=== PATIENT | male | born 1945 | race Caucasian/White ===

== ENCOUNTER 2020-01-07 14:29 | Outpatient (CLI) | payer MEDICARE, BC | END 2020-01-07 23:59 | disposition home or self-care (01) | LOC: RAD 14:29 | PROVIDERS: ATTEND Psychiatry & Neurology Neurology | DX: R13.12 Dysphagia, oropharyngeal phase (principal); R47.1 Dysarthria and anarthria; R49.0 Dysphonia; G20 Parkinson's disease | CPT/HCPCS: 74230 ==

== ENCOUNTER 2020-03-15 10:08 | Emergency (ER) | payer MEDICARE, BC ==
[~2020-03-15] VITALS: Ht 170.2 cm; Wt 80.0 kg
[2020-03-15 11:15] LABS: BASOPHILS % (AUTO) 0.4 % (0-1); EOSINOPHILS # (AUTO) 0.3 X10'3 (0-0.9); EOSINOPHILS % (AUTO) 6.3 % (0-6); HEMATOCRIT 39.6 % (42.0-52.0); HEMOGLOBIN 13.5 g/dl (14.0-17.9); LYMPHOCYTES # (AUTO) 0.8 X10'3 (1.1-4.8); LYMPHOCYTES % (AUTO) 15.3 % (21-51); MEAN CORPUSCULAR HEMOGLOBIN 30.6 PG (27.0-31.0); MEAN CORPUSCULAR HGB CONC 34.1 g/dL (33.0-36.5); MEAN CORPUSCULAR VOLUME 89.6 FL (78-98); MEAN PLATELET VOLUME 9.1 FL (7.4-10.4); MONOCYTES # (AUTO) 0.4 X10'3 (0-0.9); MONOCYTES % (AUTO) 7.7 % (2-12); NEUTROPHILS # (AUTO) 3.6 X10'3 (1.8-7.7); NEUTROPHILS % (AUTO) 70.3 % (42-75); PLATELET COUNT 173 X10'3 (140-440); RED BLOOD COUNT 4.43 X10'6 (4.70-6.10); RED CELL DISTRIBUTION WIDTH 13.6 % (11.5-14.5); WHITE BLOOD COUNT 5.1 X10'3 (4.5-11.0)
--- NOTE | 2020-03-15 11:17 | NUR ---
AT BEDSIDE ,VITALS DOCUMENTED ,NO DISTRESS NOTED .PT DENIES NAY DIZZINES SOR CP AT THIS TIME.C/O HEADACHE 08/21.
[2020-03-15 11:31] LABS: ALANINE AMINOTRANSFERASE 8 U/L (12-78); ALBUMIN 3.6 G/DL (3.4-5.0); ALBUMIN/GLOBULIN RATIO 0.9 (1.1-1.5); ALKALINE PHOSPHATASE 90 IU/L (46-116); ANION GAP 5 (8-16); ASPARTATE AMINO TRANSFERASE 12 U/L (10-37); BILIRUBIN,TOTAL 0.4 MG/DL (0.1-1.0); BLOOD UREA NITROGEN 26 MG/DL (7-18); BUN/CREATININE RATIO 24.8 (5.4-32.0); CHLORIDE 102 MMOL/L (99-107); CREATININE 1.05 MG/DL (0.60-1.10); GLUCOSE 185 MG/DL (70-104); POTASSIUM 3.1 MMOL/L (3.5-5.1); SODIUM 141 MMOL/L (135-145); TOTAL CARBON DIOXIDE 33.9 MMOL/L (24-32); TOTAL PROTEIN 7.4 G/DL (6.4-8.2); eGFR 69 ML/MIN
[2020-03-15 11:56] VITALS: BP 112/57
== END 2020-03-15 11:57 | disposition home or self-care (01) ==
LOC: ER 10:09
DX: R00.0 Tachycardia, unspecified (principal); G20 Parkinson's disease; F03.90 Unspecified dementia, unspecified severity, without behavioral disturbance, psychotic disturbance, mood disturbance, and anxiety
CPT/HCPCS: 36415; 71045; 80053; 83880; 84484; 85025; 93005; 99285

== ENCOUNTER 2021-01-23 17:17 | Emergency (ER) | payer MEDICARE, BC ==
[~2021-01-23] VITALS: Ht 165.1 cm; Wt 85.9 kg
[2021-01-23 17:35] LABS: BASOPHILS % (AUTO) 0.4 % (0-1); EOSINOPHILS # (AUTO) 0.1 X10'3 (0-0.9); EOSINOPHILS % (AUTO) 1.2 % (0-6); HEMATOCRIT 47.1 % (42.0-52.0); HEMOGLOBIN 15.7 g/dl (14.0-17.9); LYMPHOCYTES # (AUTO) 1.5 X10'3 (1.1-4.8); LYMPHOCYTES % (AUTO) 15.8 % (21-51); MEAN CORPUSCULAR HEMOGLOBIN 30.6 PG (27.0-31.0); MEAN CORPUSCULAR HGB CONC 33.4 g/dL (33.0-36.5); MEAN CORPUSCULAR VOLUME 91.6 FL (78-98); MEAN PLATELET VOLUME 9.3 FL (7.4-10.4); MONOCYTES # (AUTO) 0.8 X10'3 (0-0.9); NEUTROPHILS # (AUTO) 6.8 X10'3 (1.8-7.7); NEUTROPHILS % (AUTO) 73.6 % (42-75); PLATELET COUNT 166 X10'3 (140-440); RED BLOOD COUNT 5.14 X10'6 (4.70-6.10); WHITE BLOOD COUNT 9.3 X10'3 (4.5-11.0)
[2021-01-23 17:46] LABS: PARTIAL THROMBOPLASTIN TIME 28 SECONDS (22-32)
[2021-01-23 17:47] LABS: ALANINE AMINOTRANSFERASE 7 U/L (12-78); ALBUMIN 3.8 G/DL (3.4-5.0); ALBUMIN/GLOBULIN RATIO 1.1 (1.1-1.5); ALKALINE PHOSPHATASE 103 IU/L (46-116); ANION GAP 8 (8-16); ASPARTATE AMINO TRANSFERASE 17 U/L (10-37); BILIRUBIN,TOTAL 0.8 MG/DL (0.1-1.0); BLOOD UREA NITROGEN 15 MG/DL (7-18); BUN/CREATININE RATIO 13.8 (5.4-32.0); CHLORIDE 101 MMOL/L (99-107); CREATININE 1.09 MG/DL (0.60-1.10); GLUCOSE 187 MG/DL (70-104); POTASSIUM 3.1 MMOL/L (3.5-5.1); SODIUM 140 MMOL/L (135-145); TOTAL CARBON DIOXIDE 30.7 MMOL/L (24-32); TOTAL PROTEIN 7.3 G/DL (6.4-8.2); eGFR 66 ML/MIN
[2021-01-23 17:51] LABS: TROPONIN I < 0.04 NG/ML (0.0-0.05)
[2021-01-23] MEDS ORDERED: ESCI-8 PO (18:20)
[2021-01-23] MEDS ORDERED: HYDR25TA4 PO (18:20)
[2021-01-23] MEDS ORDERED: CARB1TAB42 PO (18:20)
[2021-01-23] MEDS ORDERED: RIVA1.5C16 PO (18:20)
[2021-01-23] MEDS ORDERED: QUET25TA36 PO (18:20)
[2021-01-23] MEDS ORDERED: GABA300C PO (18:20)
[2021-01-23] MEDS ORDERED: CLOB25SO7 TOP (18:20)
[2021-01-23] MEDS ORDERED: CARB1TAB37 PO (18:20)
[2021-01-23] MEDS ORDERED: FERR-39 PO (19:12)
[2021-01-23] MEDS ORDERED: SOLI5TAB8 PO (19:12)
[2021-01-23] MEDS ORDERED: carbidoba-levodopa 25-100mg tablet PO ONE (19:13)
[2021-01-23 19:40] VITALS: BP 105/72
== END 2021-01-23 19:40 ==
LOC: ER 17:18
DX: R55 Syncope and collapse (principal); Z20.822 Contact with and (suspected) exposure to COVID-19; G20 Parkinson's disease; I62.9 Nontraumatic intracranial hemorrhage, unspecified; F02.80 Dementia in other diseases classified elsewhere, unspecified severity, without behavioral disturbance, psychotic disturbance, mood disturbance, and anxiety
CPT/HCPCS: 36415; 70450; 71045; 80053; 84484; 85025; 85610; 85730; 87635; 99285; C9803; 93005

== ENCOUNTER 2021-06-23 19:25 | Emergency (ER) | payer MEDICARE, BC ==
[~2021-06-23] VITALS: Ht 180.3 cm; Wt 84.1 kg
[~2021-06-23 19:25] MED LIST: CARB1TAB37 PO; CARB1TAB42 PO; ESCI-8 PO; FERR-39 PO; GABA300C PO; HYDR25TA4 PO; QUET25TA36 PO; RIVA1.5C30 PO; SOLI5TAB8 PO
[2021-06-23 19:37] VITALS: BP 166/72
[2021-06-23 20:12] LABS: BASOPHILS # (AUTO) 0.1 X10'3 (0-0.2); BASOPHILS % (AUTO) 1.3 % (0-1); EOSINOPHILS # (AUTO) 0.1 X10'3 (0-0.9); EOSINOPHILS % (AUTO) 2.3 % (0-6); HEMATOCRIT 44.4 % (42.0-52.0); HEMOGLOBIN 14.8 g/dl (14.0-17.9); LYMPHOCYTES # (AUTO) 0.7 X10'3 (1.1-4.8); LYMPHOCYTES % (AUTO) 11.9 % (21-51); MEAN CORPUSCULAR HEMOGLOBIN 29.6 PG (27.0-31.0); MEAN CORPUSCULAR HGB CONC 33.5 g/dL (33.0-36.5); MEAN CORPUSCULAR VOLUME 88.6 FL (78-98); MONOCYTES # (AUTO) 0.8 X10'3 (0-0.9); NEUTROPHILS # (AUTO) 4.4 X10'3 (1.8-7.7); NEUTROPHILS % (AUTO) 71.5 % (42-75); PLATELET COUNT 150 X10'3 (140-440); RED BLOOD COUNT 5.01 X10'6 (4.70-6.10); RED CELL DISTRIBUTION WIDTH 13.9 % (11.5-14.5); WHITE BLOOD COUNT 6.2 X10'3 (4.5-11.0)
[2021-06-23 20:20] LABS: ALANINE AMINOTRANSFERASE 8 U/L (12-78); ALBUMIN 3.6 G/DL (3.4-5.0); ALBUMIN/GLOBULIN RATIO 1.1 (1.1-1.5); ALKALINE PHOSPHATASE 109 IU/L (46-116); ANION GAP 9 (8-16); ASPARTATE AMINO TRANSFERASE 11 U/L (10-37); BILIRUBIN,TOTAL 0.4 MG/DL (0.1-1.0); BLOOD UREA NITROGEN 16 MG/DL (7-18); BUN/CREATININE RATIO 15.5 (5.4-32.0); CALCIUM 8.7 MG/DL (8.5-10.1); CHLORIDE 105 MMOL/L (99-107); CREATININE 1.03 MG/DL (0.60-1.10); GLUCOSE 117 MG/DL (70-104); POTASSIUM 4.1 MMOL/L (3.5-5.1); SODIUM 142 MMOL/L (135-145); TOTAL CARBON DIOXIDE 28.3 MMOL/L (24-32); TOTAL PROTEIN 6.9 G/DL (6.4-8.2); eGFR 70 ML/MIN
[2021-06-23 20:47] LABS: CLARITY,URINE CLEAR (Clear); COLOR,URINE YELLOW (Yellow); GLUCOSE, URINE NEGATIVE (Neg); KETONES,URINE NEGATIVE (Neg); LEUKOCYTE ESTERASE ,URINE NEGATIVE (Neg); NITRITES, URINE NEGATIVE (Neg); OCCULT BLOOD,URINE NEGATIVE (Neg); PH,URINE 6.5 (4.8-8.0); PROTEIN,URINE NEGATIVE (Neg); UROBILINOGEN,URINE 0.2 E.U/dL (0.2-1.0)
[2021-06-23 20:53] LABS: UA COLLECTION TYPE URINAL
== END 2021-06-23 22:21 | disposition home or self-care (01) ==
LOC: ER 19:26
DX: F03.90 Unspecified dementia, unspecified severity, without behavioral disturbance, psychotic disturbance, mood disturbance, and anxiety (principal); M25.551 Pain in right hip; Z79.899 Other long term (current) drug therapy; W19.XXXA Unspecified fall, initial encounter; Y93.89 Activity, other specified; Y92.89 Other specified places as the place of occurrence of the external cause; Y99.8 Other external cause status
CPT/HCPCS: 36415; 70450; 71045; 72125; 80053; 81003; 85025; 93005; 99285

== ENCOUNTER 2021-08-23 16:14 | Emergency (ER) | payer MEDICARE, BC ==
[~2021-08-23] VITALS: Ht 165.1 cm; Wt 86.2 kg
--- NOTE | 2021-08-23 17:41 | NUR ---
CALL TO [facility] AT THIS TIME TO INFORM THEM PAT IS DC READY. STATED MABEL CARGO IS TO TRANSPORT PATIENT BACK TO FACILITY.
[2021-08-23] MEDS ORDERED: acetaminophen 325mg tablet PO ONE (17:50)
[2021-08-23 18:06] VITALS: BP 159/72
== END 2021-08-23 18:07 | disposition home or self-care (01) ==
LOC: ER 16:14
DX: R51.9 Headache, unspecified (principal); G20 Parkinson's disease; F02.80 Dementia in other diseases classified elsewhere, unspecified severity, without behavioral disturbance, psychotic disturbance, mood disturbance, and anxiety; Z79.899 Other long term (current) drug therapy; W19.XXXA Unspecified fall, initial encounter; Y93.89 Activity, other specified; Y92.002 Bathroom of unspecified non-institutional (private) residence as the place of occurrence of the external cause; Y99.8 Other external cause status
CPT/HCPCS: 70450; 72125; 99284

== ENCOUNTER 2021-11-06 23:24 | Emergency (ER) | payer MEDICARE, BC ==
[~2021-11-06] VITALS: Ht 180.3 cm; Wt 81.8 kg
[2021-11-06] MEDS ORDERED: ondansetron/PF 4mg/2ml inj IV ONE (23:40)
[2021-11-06] MEDS ORDERED: normal saline 1000ML IV soln IV ONE (23:40)
[2021-11-06 23:58] LABS: BASOPHILS % (AUTO) 0.6 % (0-1); EOSINOPHILS # (AUTO) 0.1 X10'3 (0-0.9); EOSINOPHILS % (AUTO) 2.2 % (0-6); HEMATOCRIT 42.7 % (42.0-52.0); HEMOGLOBIN 14.2 g/dl (14.0-17.9); LYMPHOCYTES % (AUTO) 14.9 % (21-51); MEAN CORPUSCULAR HEMOGLOBIN 29.7 PG (27.0-31.0); MEAN CORPUSCULAR HGB CONC 33.1 g/dL (33.0-36.5); MEAN CORPUSCULAR VOLUME 89.5 FL (78-98); MONOCYTES # (AUTO) 0.7 X10'3 (0-0.9); NEUTROPHILS # (AUTO) 4.6 X10'3 (1.8-7.7); NEUTROPHILS % (AUTO) 71.3 % (42-75); PLATELET COUNT 152 X10'3 (140-440); RED BLOOD COUNT 4.77 X10'6 (4.70-6.10); RED CELL DISTRIBUTION WIDTH 13.8 % (11.5-14.5); WHITE BLOOD COUNT 6.5 X10'3 (4.5-11.0)
[2021-11-07 00:12] LABS: APTT 29 SECONDS (22-32)
[2021-11-07 00:13] LABS: ALANINE AMINOTRANSFERASE 7 U/L (12-78); ALBUMIN 3.4 G/DL (3.4-5.0); ALBUMIN/GLOBULIN RATIO 1.1 (1.1-1.5); ALKALINE PHOSPHATASE 113 IU/L (46-116); ANION GAP 8 (8-16); ASPARTATE AMINO TRANSFERASE 11 U/L (10-37); BILIRUBIN,TOTAL 0.5 MG/DL (0.1-1.0); BLOOD UREA NITROGEN 12 MG/DL (7-18); BUN/CREATININE RATIO 14.3 (5.4-32.0); CALCIUM 8.5 MG/DL (8.5-10.1); CHLORIDE 106 MMOL/L (99-107); CREATININE 0.84 MG/DL (0.60-1.10); GLUCOSE 98 MG/DL (70-104); POTASSIUM 3.9 MMOL/L (3.5-5.1); SODIUM 144 MMOL/L (135-145); TOTAL CARBON DIOXIDE 30.2 MMOL/L (24-32); TOTAL PROTEIN 6.6 G/DL (6.4-8.2); eGFR 89 ML/MIN
[2021-11-07 01:30] VITALS: BP 125/67
== END 2021-11-07 02:46 | disposition home or self-care (01) ==
LOC: ER 23:24
DX: R11.10 Vomiting, unspecified (principal); F03.90 Unspecified dementia, unspecified severity, without behavioral disturbance, psychotic disturbance, mood disturbance, and anxiety; Z79.899 Other long term (current) drug therapy
CPT/HCPCS: 36415; 71045; 80053; 85025; 85610; 85730; 86885; 86900; 86901; 93005; 99285

== ENCOUNTER 2022-03-09 11:12 | Emergency (ER) | payer MEDICARE, BC ==
[~2022-03-09] VITALS: Ht 172.7 cm; Wt 75.8 kg
[2022-03-09 12:33] VITALS: BP 142/76
== END 2022-03-09 13:44 | disposition home or self-care (01) ==
LOC: ER 11:12
DX: S00.93XA Contusion of unspecified part of head, initial encounter (principal); F03.90 Unspecified dementia, unspecified severity, without behavioral disturbance, psychotic disturbance, mood disturbance, and anxiety; Z79.899 Other long term (current) drug therapy; W19.XXXA Unspecified fall, initial encounter; Y93.89 Activity, other specified; Y92.89 Other specified places as the place of occurrence of the external cause; Y99.8 Other external cause status
CPT/HCPCS: 70450; 72125; 93005; 99284

== ENCOUNTER 2023-01-13 07:21 | Emergency (ER) | payer MEDICARE, BC ==
[~2023-01-13] VITALS: Ht 165.1 cm; Wt 86.4 kg
[2023-01-13 07:28] VITALS: TEMP 98.3
[2023-01-13] MEDS ORDERED: normal saline 1000ML IV soln IVB ONE ×2 (07:30→10:35)
[2023-01-13] MEDS ORDERED: glycopyrrolate 0.2mg/ml inj IV ONE (08:50)
[2023-01-13 10:18] LABS: C DIFF ANTIGEN NEGATIVE (NEGATIVE); C DIFF SPECIMEN=DIARRHEA? ACCEPTABLE; C DIFFICILE TOXINS A&B NEGATIVE (Neg)
[2023-01-13 10:21] LABS: BASOPHILS # (AUTO) 0.1 X10'3 (0-0.2); BASOPHILS % (AUTO) 1.6 % (0-1); EOSINOPHILS # (AUTO) 0.2 X10'3 (0-0.9); EOSINOPHILS % (AUTO) 2.5 % (0-6); HEMATOCRIT 43.2 % (42.0-52.0); HEMOGLOBIN 14.4 g/dl (14.0-17.9); LYMPHOCYTES # (AUTO) 0.7 X10'3 (1.1-4.8); LYMPHOCYTES % (AUTO) 8.8 % (21-51); MEAN CORPUSCULAR HEMOGLOBIN 30.2 PG (27.0-31.0); MEAN CORPUSCULAR HGB CONC 33.4 g/dL (33.0-36.5); MEAN CORPUSCULAR VOLUME 90.4 FL (78-98); MEAN PLATELET VOLUME 8.8 FL (7.4-10.4); MONOCYTES # (AUTO) 0.6 X10'3 (0-0.9); MONOCYTES % (AUTO) 7.8 % (2-12); NEUTROPHILS # (AUTO) 6.5 X10'3 (1.8-7.7); NEUTROPHILS % (AUTO) 79.3 % (42-75); PLATELET COUNT 131 X10'3 (140-440); RED BLOOD COUNT 4.77 X10'6 (4.70-6.10); RED CELL DISTRIBUTION WIDTH 14.3 % (11.5-14.5); WHITE BLOOD COUNT 8.2 X10'3 (4.5-11.0)
[2023-01-13 10:26] LABS: ALANINE AMINOTRANSFERASE 6 U/L (12-78); ALBUMIN 3.1 G/DL (3.4-5.0); ALBUMIN/GLOBULIN RATIO 0.9 (1.1-1.5); ALKALINE PHOSPHATASE 95 IU/L (46-116); ANION GAP 8 (8-16); ASPARTATE AMINO TRANSFERASE 18 U/L (10-37); BILIRUBIN,TOTAL 0.6 MG/DL (0.1-1.0); BLOOD UREA NITROGEN 12 MG/DL (7-18); BUN/CREATININE RATIO 13.3 (10.0-20.0); CALCIUM 8.5 MG/DL (8.5-10.1); CHLORIDE 104 MMOL/L (99-107); GLUCOSE 96 MG/DL (70-104); SODIUM 140 MMOL/L (135-145); TOTAL CARBON DIOXIDE 27.8 MMOL/L (24-32); TOTAL PROTEIN 6.5 G/DL (6.4-8.2); eCRCL 60 ML/MIN; eGFR 82 ML/MIN
[2023-01-13 10:28] LABS: LIPASE < 50 U/L (73-393); POTASSIUM 3.9 MMOL/L (3.5-5.1)
[2023-01-13] MEDS ORDERED: loperamide 2mg capsule PO ONE (10:30)
[2023-01-13 10:42] LABS: BILIRUBIN,URINE NEGATIVE (Neg); CLARITY,URINE CLEAR (Clear); COLOR,URINE YELLOW (Yellow); GLUCOSE, URINE NEGATIVE (Neg); KETONES,URINE NEGATIVE (Neg); LEUKOCYTE ESTERASE ,URINE NEGATIVE (Neg); NITRITES, URINE NEGATIVE (Neg); OCCULT BLOOD,URINE NEGATIVE (Neg); PROTEIN,URINE NEGATIVE (Neg); UROBILINOGEN,URINE 0.2 E.U/dL (0.2-1.0)
[2023-01-13 10:43] LABS: UA COLLECTION TYPE VOIDED
[2023-01-13] MEDS ORDERED: acetaminophen 325mg tablet PO ONE (10:50)
[2023-01-13 11:35] VITALS: BP 143/67; PULSE 70; RESP 16; O2SAT 95
[2023-01-13] MEDS ORDERED: DICY10CA88 PO (12:02)
== END 2023-01-13 12:33 | disposition home or self-care (01) ==
LOC: ER 07:22
DX: R19.7 Diarrhea, unspecified (principal); G20 Parkinson's disease; F03.90 Unspecified dementia, unspecified severity, without behavioral disturbance, psychotic disturbance, mood disturbance, and anxiety; Z79.899 Other long term (current) drug therapy
CPT/HCPCS: 36415; 74176; 80053; 81003; 83690; 84145; 85025; 87045; 87046; 87324; 87449; 96374; 99285; J3490; J7030; C1758

== ENCOUNTER 2023-06-06 12:33 | Inpatient (IN) | payer MEDICARE, BC ==
[~2023-06-06] VITALS: Ht 165.1 cm; Wt 84.2 kg
[~2023-06-06 12:33] MED LIST changes: +LACT10SO78 PO; +LINE600T11 CORPAK
[2023-06-06] MEDS ORDERED: linezolid 600mg/300ml PREMIX 300 ML IV ONE (14:29)
[2023-06-06 15:02] LABS: BASOPHILS % (AUTO) 0.1 % (0-1); EOSINOPHILS # (AUTO) 0.2 X10'3 (0-0.9); EOSINOPHILS % (AUTO) 2.2 % (0-6); HEMATOCRIT 48.1 % (42.0-52.0); HEMOGLOBIN 15.7 g/dl (14.0-17.9); LYMPHOCYTES # (AUTO) 0.9 X10'3 (1.1-4.8); LYMPHOCYTES % (AUTO) 8.5 % (21-51); MEAN CORPUSCULAR HEMOGLOBIN 29.3 PG (27.0-31.0); MEAN CORPUSCULAR HGB CONC 32.7 g/dL (33.0-36.5); MEAN CORPUSCULAR VOLUME 89.7 FL (78-98); MEAN PLATELET VOLUME 8.8 FL (7.4-10.4); MONOCYTES # (AUTO) 1.2 X10'3 (0-0.9); MONOCYTES % (AUTO) 10.9 % (2-12); NEUTROPHILS # (AUTO) 8.7 X10'3 (1.8-7.7); NEUTROPHILS % (AUTO) 78.3 % (42-75); PLATELET COUNT 150 X10'3 (140-440); RED BLOOD COUNT 5.37 X10'6 (4.70-6.10); RED CELL DISTRIBUTION WIDTH 14.1 % (11.5-14.5); WHITE BLOOD COUNT 11.1 X10'3 (4.5-11.0)
[2023-06-06 16:01] LABS: ALANINE AMINOTRANSFERASE 11 U/L (12-78); ALBUMIN 2.9 G/DL (3.4-5.0); ALBUMIN/GLOBULIN RATIO 0.9 (1.1-1.5); ALKALINE PHOSPHATASE 72 IU/L (46-116); ANION GAP 3 (8-16); ASPARTATE AMINO TRANSFERASE 21 U/L (10-37); BILIRUBIN,TOTAL 0.6 MG/DL (0.1-1.0); BLOOD UREA NITROGEN 23 MG/DL (7-18); BUN/CREATININE RATIO 24.2 (10.0-20.0); CALCIUM 8.1 MG/DL (8.5-10.1); CHLORIDE 101 MMOL/L (99-107); CREATININE 0.95 MG/DL (0.60-1.10); GLUCOSE 101 MG/DL (70-104); POTASSIUM 3.4 MMOL/L (3.5-5.1); SODIUM 140 MMOL/L (135-145); TOTAL CARBON DIOXIDE 35.7 MMOL/L (24-32); TOTAL PROTEIN 6.3 G/DL (6.4-8.2); eCRCL 72 ML/MIN; eGFR 77 ML/MIN
[2023-06-06 16:12] LABS: MAGNESIUM 2.5 MG/DL (1.5-2.4); THYROID STIMULATING HORMONE 1.36 ulU/ml (0.34-4.50)
[2023-06-06] MEDS ORDERED: normal saline 1000ml 1,000 ML IV ONE ×2 (17:45→19:25)
[2023-06-06 18:04] LABS: BILIRUBIN,URINE NEGATIVE (Neg); CLARITY,URINE CLEAR (Clear); COLOR,URINE YELLOW (Yellow); GLUCOSE, URINE NEGATIVE (Neg); KETONES,URINE NEGATIVE (Neg); LEUKOCYTE ESTERASE ,URINE NEGATIVE (Neg); NITRITES, URINE NEGATIVE (Neg); OCCULT BLOOD,URINE SMALL (Neg); PROTEIN,URINE NEGATIVE (Neg); UROBILINOGEN,URINE 0.2 E.U/dL (0.2-1.0)
[2023-06-06 18:15] LABS: UA COLLECTION TYPE CLN CATCH MIDSTREAM
[2023-06-06 18:16] LABS: MUCUS STRANDS FEW /LPF (Neg); SQUAMOUS EPITHELIAL CELL,UR NONE SEEN /LPF (FEW)
[2023-06-06 18:17] LABS: RBC,URINE 20-50 /HPF (0-2)
[2023-06-06 18:18] LABS: BACTERIA,URINE 1+ /HPF (Neg)
[2023-06-06] MEDS ORDERED: acetaminophen 325mg tablet PO PRN (20:40)
[2023-06-06] MEDS ORDERED: magnesium Cl slow-release 64mg tablet PO PRN (20:40)
[2023-06-06] MEDS ORDERED: magnesium 2GM in 50ml NS 50 ML IV PRN (20:40)
[2023-06-06] MEDS ORDERED: ondansetron/PF 4mg/2ml inj IV PRN (20:40)
[2023-06-06] MEDS ORDERED: potassium Cl 40MEQ/1/2NS 520ml 520 ML IV PRN (20:40)
[2023-06-06] MEDS ORDERED: potassium Cl 20 mEq SR tablet PO PRN ×2 (20:40)
[2023-06-06] MEDS ORDERED: magnesium 4gm in 100ml NS 100 ML IV PRN (20:40)
[2023-06-06] MEDS: normal saline 1000ml 1,000 ML IV SCH (20:56)
[2023-06-06] MEDS ORDERED: atropine 1 MG/1 ML vial IV ONE (21:15)
[2023-06-06 22:12] VITALS: PULSE 52; RESP 16; O2SAT 96
[2023-06-07] MEDS ORDERED: acetaminophen 650mg rectal suppository RC ONE (00:50)
[2023-06-07 00:58] LABS: C-REACTIVE PROTEIN 3.44 MG/DL (0.0-0.5); POTASSIUM 3.8 MMOL/L (3.5-5.1)
[2023-06-07] MEDS: CefTRIAXone 2gm/D5W 50ml BAG 50 ML IV SCH ×2 (01:45→07:45)
[2023-06-07] MEDS: acetaminophen 325mg tablet PO SCH ×3 (08:00→14:10)
[2023-06-07 09:02] LABS: BASOPHILS # (AUTO) 0.2 X10'3 (0-0.2); BASOPHILS % (AUTO) 1.8 % (0-1); EOSINOPHILS # (AUTO) 0.3 X10'3 (0-0.9); EOSINOPHILS % (AUTO) 3.3 % (0-6); HEMATOCRIT 43.4 % (42.0-52.0); HEMOGLOBIN 14.2 g/dl (14.0-17.9); LYMPHOCYTES # (AUTO) 0.6 X10'3 (1.1-4.8); LYMPHOCYTES % (AUTO) 6.6 % (21-51); MEAN CORPUSCULAR HEMOGLOBIN 29.2 PG (27.0-31.0); MEAN CORPUSCULAR HGB CONC 32.6 g/dL (33.0-36.5); MEAN CORPUSCULAR VOLUME 89.6 FL (78-98); MEAN PLATELET VOLUME 8.6 FL (7.4-10.4); MONOCYTES # (AUTO) 0.8 X10'3 (0-0.9); MONOCYTES % (AUTO) 8.4 % (2-12); NEUTROPHILS # (AUTO) 7.5 X10'3 (1.8-7.7); NEUTROPHILS % (AUTO) 79.9 % (42-75); PLATELET COUNT 128 X10'3 (140-440); RED BLOOD COUNT 4.84 X10'6 (4.70-6.10); RED CELL DISTRIBUTION WIDTH 14.2 % (11.5-14.5); WHITE BLOOD COUNT 9.3 X10'3 (4.5-11.0)
[2023-06-07 09:04] LABS: ALANINE AMINOTRANSFERASE 13 U/L (12-78); ALBUMIN 2.5 G/DL (3.4-5.0); ALBUMIN/GLOBULIN RATIO 0.8 (1.1-1.5); ALKALINE PHOSPHATASE 67 IU/L (46-116); ANION GAP 4 (8-16); ASPARTATE AMINO TRANSFERASE 18 U/L (10-37); BILIRUBIN,TOTAL 0.4 MG/DL (0.1-1.0); BLOOD UREA NITROGEN 17 MG/DL (7-18); BUN/CREATININE RATIO 21.3 (10.0-20.0); CALCIUM 7.4 MG/DL (8.5-10.1); CHLORIDE 106 MMOL/L (99-107); GLUCOSE 105 MG/DL (70-104); POTASSIUM 3.4 MMOL/L (3.5-5.1); SODIUM 139 MMOL/L (135-145); TOTAL CARBON DIOXIDE 29.2 MMOL/L (24-32); TOTAL PROTEIN 5.7 G/DL (6.4-8.2); eCRCL 86 ML/MIN; eGFR > 90 ML/MIN
[2023-06-07 09:11] VITALS: PULSE 47; RESP 13; O2SAT 99
[2023-06-07] MEDS: normal saline 1000ml 1,000 ML IV SCH (13:04)
[2023-06-07] MEDS: enoxaparin 40mg/0.4ml syringe SQ SCH (20:03)
[2023-06-08 01:57] VITALS: BP 182/74; PULSE 60; RESP 16; TEMP 99; O2SAT 97
[2023-06-08 02:00] VITALS: BP 134/61; PULSE 53; RESP 18; TEMP 97; O2SAT 98
[2023-06-08] MEDS ORDERED: polyvinyl alcohol ophthalmic drops 15ml bottle EACHEYE PRN (02:15)
[2023-06-08] MEDS ORDERED: loperamide 2mg capsule PO PRN (02:15)
[2023-06-08] MEDS ORDERED: acetaminophen 325mg tablet PO PRN (02:15)
[2023-06-08] MEDS ORDERED: dicyclomine 10 MG capsule PO PRN (02:15)
[2023-06-08] MEDS ORDERED: polyethylene glycol 3350 17gm powd pack PO PRN (02:15)
[2023-06-08] MEDS ORDERED: haloperidol 1mg tablet PO PRN (02:15)
[2023-06-08] MEDS: normal saline 1000ml 1,000 ML IV SCH ×2 (02:35→16:03)
[2023-06-08 06:00] VITALS: BP 166/64; PULSE 50; RESP 14; TEMP 97.9; O2SAT 96
[2023-06-08 06:47] LABS: BASOPHILS % (AUTO) 0.2 % (0-1); EOSINOPHILS # (AUTO) 0.4 X10'3 (0-0.9); EOSINOPHILS % (AUTO) 4.4 % (0-6); HEMATOCRIT 42.6 % (42.0-52.0); LYMPHOCYTES # (AUTO) 0.6 X10'3 (1.1-4.8); LYMPHOCYTES % (AUTO) 7.3 % (21-51); MEAN CORPUSCULAR HEMOGLOBIN 29.4 PG (27.0-31.0); MEAN CORPUSCULAR HGB CONC 32.9 g/dL (33.0-36.5); MEAN CORPUSCULAR VOLUME 89.4 FL (78-98); MEAN PLATELET VOLUME 9.1 FL (7.4-10.4); MONOCYTES # (AUTO) 0.9 X10'3 (0-0.9); MONOCYTES % (AUTO) 10.9 % (2-12); NEUTROPHILS # (AUTO) 6.3 X10'3 (1.8-7.7); NEUTROPHILS % (AUTO) 77.2 % (42-75); PLATELET COUNT 136 X10'3 (140-440); RED BLOOD COUNT 4.77 X10'6 (4.70-6.10); RED CELL DISTRIBUTION WIDTH 13.9 % (11.5-14.5); WHITE BLOOD COUNT 8.2 X10'3 (4.5-11.0)
[2023-06-08 06:58] LABS: ALANINE AMINOTRANSFERASE 18 U/L (12-78); ALBUMIN 2.4 G/DL (3.4-5.0); ALBUMIN/GLOBULIN RATIO 0.8 (1.1-1.5); ALKALINE PHOSPHATASE 62 IU/L (46-116); ANION GAP 8 (8-16); ASPARTATE AMINO TRANSFERASE 16 U/L (10-37); BILIRUBIN,TOTAL 0.7 MG/DL (0.1-1.0); BLOOD UREA NITROGEN 14 MG/DL (7-18); BUN/CREATININE RATIO 20.9 (10.0-20.0); CALCIUM 7.8 MG/DL (8.5-10.1); CHLORIDE 106 MMOL/L (99-107); CREATININE 0.67 MG/DL (0.60-1.10); GLUCOSE 82 MG/DL (70-104); POTASSIUM 3.6 MMOL/L (3.5-5.1); SODIUM 140 MMOL/L (135-145); TOTAL CARBON DIOXIDE 26.5 MMOL/L (24-32); TOTAL PROTEIN 5.5 G/DL (6.4-8.2); eCRCL 79 ML/MIN; eGFR > 90 ML/MIN
[2023-06-08] MEDS: CefTRIAXone 2gm/D5W 50ml BAG 50 ML IV SCH (07:54)
[2023-06-08] MEDS: docusate sod 100mg capsule PO SCH (08:00)
[2023-06-08] MEDS: acetaminophen 325mg tablet PO SCH ×4 (08:00→23:02)
[2023-06-08] MEDS: zinc oxide ointment 30gm tube TP SCH ×2 (08:00→19:38)
[2023-06-08 11:00] VITALS: BP 151/64; PULSE 50; RESP 18; TEMP 97.7; O2SAT 96
[2023-06-08 15:00] VITALS: BP 164/81; PULSE 70; RESP 16; TEMP 97.9; O2SAT 97
[2023-06-08] MEDS: carbidoba-levodopa 25-100mg tablet PO SCH ×2 (15:32→19:31)
[2023-06-08] MEDS: enoxaparin 40mg/0.4ml syringe SQ SCH (19:31)
[2023-06-08] MEDS: carbidopa/levodopa 50/200mg CR tablet PO SCH (21:00)
[2023-06-08 21:54] VITALS: BP 115/59; PULSE 68; RESP 16; TEMP 98.1; O2SAT 99
[2023-06-09] VITALS (7 sets, daily range): BP systolic 125–154; BP diastolic 63–86; PULSE 51–68; RESP 12–18; TEMP 97.7–98; O2SAT 94–98
[2023-06-09] MEDS: normal saline 1000ml 1,000 ML IV SCH ×2 (05:09→20:46)
[2023-06-09 07:24] LABS: MEAN CORPUSCULAR HGB CONC 33.1 g/dL (33.0-36.5); MONOCYTES # (AUTO) 1.1 X10'3 (0-0.9)
[2023-06-09 07:27] LABS: BASOPHILS % (AUTO) 0.2 % (0-1); EOSINOPHILS # (AUTO) 0.4 X10'3 (0-0.9); EOSINOPHILS % (AUTO) 4.5 % (0-6); HEMATOCRIT 42.4 % (42.0-52.0); LYMPHOCYTES # (AUTO) 0.8 X10'3 (1.1-4.8); LYMPHOCYTES % (AUTO) 9.4 % (21-51); MEAN CORPUSCULAR HEMOGLOBIN 29.6 PG (27.0-31.0); MEAN CORPUSCULAR VOLUME 89.3 FL (78-98); MEAN PLATELET VOLUME 9.3 FL (7.4-10.4); MONOCYTES % (AUTO) 12.5 % (2-12); NEUTROPHILS # (AUTO) 6.6 X10'3 (1.8-7.7); NEUTROPHILS % (AUTO) 73.4 % (42-75); PLATELET COUNT 143 X10'3 (140-440); RED BLOOD COUNT 4.75 X10'6 (4.70-6.10)
[2023-06-09 07:42] LABS: ALANINE AMINOTRANSFERASE 12 U/L (12-78); ALBUMIN 2.5 G/DL (3.4-5.0); ALBUMIN/GLOBULIN RATIO 0.8 (1.1-1.5); ALKALINE PHOSPHATASE 64 IU/L (46-116); ANION GAP 7 (8-16); ASPARTATE AMINO TRANSFERASE 17 U/L (10-37); BILIRUBIN,TOTAL 0.6 MG/DL (0.1-1.0); BLOOD UREA NITROGEN 11 MG/DL (7-18); BUN/CREATININE RATIO 14.9 (10.0-20.0); CHLORIDE 105 MMOL/L (99-107); CREATININE 0.74 MG/DL (0.60-1.10); GLUCOSE 76 MG/DL (70-104); POTASSIUM 4.1 MMOL/L (3.5-5.1); SODIUM 140 MMOL/L (135-145); TOTAL CARBON DIOXIDE 28.1 MMOL/L (24-32); TOTAL PROTEIN 5.6 G/DL (6.4-8.2); eCRCL 72 ML/MIN; eGFR > 90 ML/MIN
[2023-06-09] MEDS: CefTRIAXone 2gm/D5W 50ml BAG 50 ML IV SCH (07:53)
[2023-06-09] MEDS: zinc oxide ointment 30gm tube TP SCH ×2 (07:57→20:46)
[2023-06-09] MEDS: docusate sod 100mg capsule PO SCH (08:00)
[2023-06-09] MEDS: acetaminophen 325mg tablet PO SCH ×3 (08:00→23:26)
[2023-06-09] MEDS: ESCITALOPRAM 10 mg tablet 10 MG TABLET PO SCH (08:00)
[2023-06-09] MEDS: carbidoba-levodopa 25-100mg tablet PO SCH ×4 (08:01→19:00)
[2023-06-09] MEDS: oxybutynin 5mg tablet PO SCH (20:00)
[2023-06-09] MEDS: carbidopa/levodopa 50/200mg CR tablet PO SCH (20:45)
[2023-06-09] MEDS: enoxaparin 40mg/0.4ml syringe SQ SCH (20:46)
[2023-06-10] VITALS (7 sets, daily range): BP systolic 141–169; BP diastolic 63–89; PULSE 54–83; RESP 14–18; TEMP 97.1–98.6; O2SAT 93–96
[2023-06-10 06:58] LABS: BASOPHILS % (AUTO) 0.3 % (0-1); EOSINOPHILS # (AUTO) 0.3 X10'3 (0-0.9); EOSINOPHILS % (AUTO) 3.3 % (0-6); HEMATOCRIT 41.4 % (42.0-52.0); HEMOGLOBIN 14.1 g/dl (14.0-17.9); LYMPHOCYTES # (AUTO) 0.8 X10'3 (1.1-4.8); LYMPHOCYTES % (AUTO) 8.8 % (21-51); MEAN CORPUSCULAR HEMOGLOBIN 30.2 PG (27.0-31.0); MEAN CORPUSCULAR HGB CONC 34.1 g/dL (33.0-36.5); MEAN CORPUSCULAR VOLUME 88.4 FL (78-98); MEAN PLATELET VOLUME 9.2 FL (7.4-10.4); MONOCYTES % (AUTO) 10.3 % (2-12); NEUTROPHILS # (AUTO) 7.4 X10'3 (1.8-7.7); NEUTROPHILS % (AUTO) 77.3 % (42-75); PLATELET COUNT 145 X10'3 (140-440); RED BLOOD COUNT 4.68 X10'6 (4.70-6.10); RED CELL DISTRIBUTION WIDTH 13.9 % (11.5-14.5); WHITE BLOOD COUNT 9.5 X10'3 (4.5-11.0)
[2023-06-10] MEDS: carbidoba-levodopa 25-100mg tablet PO SCH ×4 (07:00→18:43)
[2023-06-10 07:11] LABS: ALANINE AMINOTRANSFERASE 17 U/L (12-78); ALBUMIN 2.4 G/DL (3.4-5.0); ALBUMIN/GLOBULIN RATIO 0.8 (1.1-1.5); ALKALINE PHOSPHATASE 67 IU/L (46-116); ANION GAP 9 (8-16); ASPARTATE AMINO TRANSFERASE 16 U/L (10-37); BILIRUBIN,TOTAL 0.6 MG/DL (0.1-1.0); BLOOD UREA NITROGEN 9 MG/DL (7-18); BUN/CREATININE RATIO 13.4 (10.0-20.0); CALCIUM 7.9 MG/DL (8.5-10.1); CHLORIDE 106 MMOL/L (99-107); CREATININE 0.67 MG/DL (0.60-1.10); GLUCOSE 72 MG/DL (70-104); POTASSIUM 4.3 MMOL/L (3.5-5.1); SODIUM 141 MMOL/L (135-145); TOTAL CARBON DIOXIDE 26.5 MMOL/L (24-32); TOTAL PROTEIN 5.5 G/DL (6.4-8.2); eCRCL 79 ML/MIN; eGFR > 90 ML/MIN
[2023-06-10] MEDS: ESCITALOPRAM 10 mg tablet 10 MG TABLET PO SCH (07:37)
[2023-06-10] MEDS: oxybutynin 5mg tablet PO SCH ×2 (07:37→19:08)
[2023-06-10] MEDS: docusate sod 100mg capsule PO SCH (07:37)
[2023-06-10] MEDS: CefTRIAXone 2gm/D5W 50ml BAG 50 ML IV SCH (07:37)
[2023-06-10] MEDS: acetaminophen 325mg tablet PO SCH ×3 (07:38→23:15)
[2023-06-10] MEDS: normal saline 1000ml 1,000 ML IV SCH ×2 (07:44→14:17)
[2023-06-10] MEDS: zinc oxide ointment 30gm tube TP SCH ×2 (08:00→19:20)
[2023-06-10] MEDS: enoxaparin 40mg/0.4ml syringe SQ SCH (19:20)
[2023-06-10] MEDS: carbidopa/levodopa 50/200mg CR tablet PO SCH (20:09)
[2023-06-10] MEDS: DICLOFENAC SODIUM 1% gel 1 APPLIC APPLIC TP PRN (20:27)
[2023-06-11] VITALS (9 sets, daily range): BP systolic 147–172; BP diastolic 67–88; PULSE 51–87; RESP 14–21; TEMP 97.1–98.5; O2SAT 92–97
[2023-06-11] MEDS: normal saline 1000ml 1,000 ML IV SCH ×2 (02:01→23:11)
[2023-06-11] MEDS: carbidoba-levodopa 25-100mg tablet PO SCH ×4 (07:00→19:00)
[2023-06-11 07:57] LABS: BASOPHILS # (AUTO) 0.1 X10'3 (0-0.2); BASOPHILS % (AUTO) 0.6 % (0-1); EOSINOPHILS # (AUTO) 0.3 X10'3 (0-0.9); HEMATOCRIT 42.8 % (42.0-52.0); HEMOGLOBIN 14.4 g/dl (14.0-17.9); LYMPHOCYTES # (AUTO) 0.7 X10'3 (1.1-4.8); LYMPHOCYTES % (AUTO) 8.3 % (21-51); MEAN CORPUSCULAR HEMOGLOBIN 29.5 PG (27.0-31.0); MEAN CORPUSCULAR HGB CONC 33.6 g/dL (33.0-36.5); MEAN CORPUSCULAR VOLUME 87.9 FL (78-98); MEAN PLATELET VOLUME 8.8 FL (7.4-10.4); MONOCYTES # (AUTO) 0.9 X10'3 (0-0.9); MONOCYTES % (AUTO) 10.9 % (2-12); NEUTROPHILS # (AUTO) 6.5 X10'3 (1.8-7.7); NEUTROPHILS % (AUTO) 77.2 % (42-75); PLATELET COUNT 139 X10'3 (140-440); RED BLOOD COUNT 4.86 X10'6 (4.70-6.10); RED CELL DISTRIBUTION WIDTH 13.7 % (11.5-14.5); WHITE BLOOD COUNT 8.4 X10'3 (4.5-11.0)
[2023-06-11] MEDS: CefTRIAXone 2gm/D5W 50ml BAG 50 ML IV SCH (07:59)
[2023-06-11] MEDS: zinc oxide ointment 30gm tube TP SCH ×2 (07:59→20:00)
[2023-06-11] MEDS: acetaminophen 325mg tablet PO SCH ×3 (08:00→23:11)
[2023-06-11] MEDS: oxybutynin 5mg tablet PO SCH ×2 (08:00→19:18)
[2023-06-11] MEDS: docusate sod 100mg capsule PO SCH (08:00)
[2023-06-11] MEDS ORDERED: clobetasol propionate ointment 15gm TP SCH (08:00)
[2023-06-11] MEDS: ESCITALOPRAM 10 mg tablet 10 MG TABLET PO SCH (08:00)
[2023-06-11 08:36] LABS: ALANINE AMINOTRANSFERASE 21 U/L (12-78); ALBUMIN 2.5 G/DL (3.4-5.0); ALBUMIN/GLOBULIN RATIO 0.8 (1.1-1.5); ALKALINE PHOSPHATASE 71 IU/L (46-116); ANION GAP 10 (8-16); ASPARTATE AMINO TRANSFERASE 22 U/L (10-37); BILIRUBIN,TOTAL 0.6 MG/DL (0.1-1.0); BLOOD UREA NITROGEN 9 MG/DL (7-18); BUN/CREATININE RATIO 13.2 (10.0-20.0); CALCIUM 7.9 MG/DL (8.5-10.1); CHLORIDE 104 MMOL/L (99-107); CREATININE 0.68 MG/DL (0.60-1.10); GLUCOSE 81 MG/DL (70-104); POTASSIUM 3.7 MMOL/L (3.5-5.1); SODIUM 139 MMOL/L (135-145); TOTAL PROTEIN 5.7 G/DL (6.4-8.2); eCRCL 78 ML/MIN; eGFR > 90 ML/MIN
[2023-06-11] MEDS ORDERED: iohexol 350MG/ML 100ml bottle IV ONE ×2 (13:15→21:24)
[2023-06-11] MEDS ORDERED: hydrALAZINE 20mg/ml inj. IV PRN (14:15)
[2023-06-11] MEDS: enoxaparin 40mg/0.4ml syringe SQ SCH (20:00)
[2023-06-11] MEDS: carbidopa/levodopa 50/200mg CR tablet PO SCH (20:00)
[2023-06-11] MEDS: DICLOFENAC SODIUM 1% gel 1 APPLIC APPLIC TP PRN (21:22)
[2023-06-11] MEDS ORDERED: heparin 10,000 units/1 ML INJ IV PRN (22:25)
[2023-06-11] MEDS ORDERED: heparin 10,000 units/1 ML INJ IV ONE ×2 (22:25→22:35)
[2023-06-11] MEDS: heparin 25,000 UNIT/250ml bag 250 ML IV PRN (23:14)
[2023-06-11 23:48] LABS: APTT 35 SECONDS (22-32); INR 1.4 INR; PROTHROMBIN TIME 14.6 SECONDS (9.0-12.0)
[2023-06-12 02:00] VITALS: BP 160/77; PULSE 53; RESP 18; TEMP 97.3; O2SAT 96
[2023-06-12] MEDS: normal saline 1000ml 1,000 ML IV SCH ×2 (04:59→19:11)
[2023-06-12] MEDS: carbidoba-levodopa 25-100mg tablet PO SCH ×4 (07:00→19:00)
[2023-06-12 07:22] VITALS: BP 169/92; PULSE 57; RESP 14; TEMP 97.7; O2SAT 98
[2023-06-12 08:00] VITALS: RESP 14; O2SAT 98
[2023-06-12] MEDS: zinc oxide ointment 30gm tube TP SCH ×2 (08:00→21:26)
[2023-06-12] MEDS: acetaminophen 325mg tablet PO SCH ×2 (08:00→16:00)
[2023-06-12] MEDS: docusate sod 100mg capsule PO SCH (08:00)
[2023-06-12] MEDS: oxybutynin 5mg tablet PO SCH ×2 (08:00→20:00)
[2023-06-12] MEDS: ESCITALOPRAM 10 mg tablet 10 MG TABLET PO SCH (08:00)
[2023-06-12 12:19] VITALS: BP 147/73; PULSE 70; RESP 15; TEMP 97.6; O2SAT 97
[2023-06-12 15:30] VITALS: BP 152/79; PULSE 63; RESP 12; TEMP 97.5; O2SAT 99
[2023-06-12] MEDS: heparin 25,000 UNIT/250ml bag 250 ML IV PRN (19:10)
[2023-06-12] MEDS: carbidopa/levodopa 50/200mg CR tablet PO SCH (20:29)
[2023-06-13 02:00] VITALS: BP 149/64; PULSE 52; RESP 11; TEMP 97.4; O2SAT 90
[2023-06-13 03:40] VITALS: BP 123/57; PULSE 56; RESP 17; O2SAT 94
[2023-06-13 06:00] VITALS: BP 155/63; PULSE 74; RESP 14; TEMP 98.2; O2SAT 91
[2023-06-13] MEDS: carbidoba-levodopa 25-100mg tablet PO SCH ×4 (07:00→19:00)
[2023-06-13 07:38] LABS: BASOPHILS % (AUTO) 0.5 % (0-1); EOSINOPHILS # (AUTO) 0.2 X10'3 (0-0.9); EOSINOPHILS % (AUTO) 2.9 % (0-6); HEMATOCRIT 41.4 % (42.0-52.0); HEMOGLOBIN 13.9 g/dl (14.0-17.9); LYMPHOCYTES # (AUTO) 0.7 X10'3 (1.1-4.8); LYMPHOCYTES % (AUTO) 8.7 % (21-51); MEAN CORPUSCULAR HEMOGLOBIN 29.5 PG (27.0-31.0); MEAN CORPUSCULAR HGB CONC 33.6 g/dL (33.0-36.5); MEAN CORPUSCULAR VOLUME 87.8 FL (78-98); MEAN PLATELET VOLUME 9.3 FL (7.4-10.4); MONOCYTES # (AUTO) 0.7 X10'3 (0-0.9); MONOCYTES % (AUTO) 9.7 % (2-12); NEUTROPHILS # (AUTO) 5.9 X10'3 (1.8-7.7); NEUTROPHILS % (AUTO) 78.2 % (42-75); PLATELET COUNT 131 X10'3 (140-440); RED BLOOD COUNT 4.72 X10'6 (4.70-6.10); RED CELL DISTRIBUTION WIDTH 14.1 % (11.5-14.5); WHITE BLOOD COUNT 7.5 X10'3 (4.5-11.0)
[2023-06-13 07:56] LABS: ALANINE AMINOTRANSFERASE 19 U/L (12-78); ALBUMIN 2.6 G/DL (3.4-5.0); ALBUMIN/GLOBULIN RATIO 0.8 (1.1-1.5); ALKALINE PHOSPHATASE 70 IU/L (46-116); ANION GAP 11 (8-16); ASPARTATE AMINO TRANSFERASE 15 U/L (10-37); BILIRUBIN,TOTAL 0.6 MG/DL (0.1-1.0); BLOOD UREA NITROGEN 10 MG/DL (7-18); BUN/CREATININE RATIO 15.9 (10.0-20.0); CHLORIDE 105 MMOL/L (99-107); CREATININE 0.63 MG/DL (0.60-1.10); GLUCOSE 82 MG/DL (70-104); POTASSIUM 3.3 MMOL/L (3.5-5.1); SODIUM 139 MMOL/L (135-145); TOTAL CARBON DIOXIDE 23.3 MMOL/L (24-32); TOTAL PROTEIN 5.7 G/DL (6.4-8.2); eCRCL 84 ML/MIN; eGFR > 90 ML/MIN
[2023-06-13 08:00] VITALS: RESP 14; O2SAT 91
[2023-06-13] MEDS: zinc oxide ointment 30gm tube TP SCH ×2 (08:00→19:58)
[2023-06-13] MEDS: ESCITALOPRAM 10 mg tablet 10 MG TABLET PO SCH (08:00)
[2023-06-13] MEDS: acetaminophen 325mg tablet PO SCH ×3 (08:00→16:00)
[2023-06-13] MEDS: docusate sod 100mg capsule PO SCH (08:00)
[2023-06-13] MEDS: oxybutynin 5mg tablet PO SCH ×2 (08:00→20:00)
[2023-06-13] MEDS: normal saline 1000ml 1,000 ML IV SCH (09:27)
[2023-06-13 11:00] VITALS: BP 152/82; PULSE 73; RESP 19; TEMP 97.9; O2SAT 98
[2023-06-13] MEDS ORDERED: potassium CL 20mEq in D5-1/2NS 1,000 ML IV SCH (11:20)
[2023-06-13 13:43] LABS: ALANINE AMINOTRANSFERASE 20 U/L (12-78); ALBUMIN 2.4 G/DL (3.4-5.0); ALBUMIN/GLOBULIN RATIO 0.8 (1.1-1.5); ALKALINE PHOSPHATASE 63 IU/L (46-116); ANION GAP 8 (8-16); ASPARTATE AMINO TRANSFERASE 16 U/L (10-37); BILIRUBIN,TOTAL 0.5 MG/DL (0.1-1.0); BLOOD UREA NITROGEN 8 MG/DL (7-18); BUN/CREATININE RATIO 11.9 (10.0-20.0); CALCIUM 7.1 MG/DL (8.5-10.1); CHLORIDE 102 MMOL/L (99-107); CREATININE 0.67 MG/DL (0.60-1.10); POTASSIUM 5.6 MMOL/L (3.5-5.1); SODIUM 132 MMOL/L (135-145); TOTAL CARBON DIOXIDE 21.8 MMOL/L (24-32); TOTAL PROTEIN 5.3 G/DL (6.4-8.2); eCRCL 79 ML/MIN; eGFR > 90 ML/MIN
[2023-06-13 13:47] LABS: GLUCOSE 446 MG/DL (70-104)
[2023-06-13 18:15] LABS: ALANINE AMINOTRANSFERASE 21 U/L (12-78); ALBUMIN 2.8 G/DL (3.4-5.0); ALBUMIN/GLOBULIN RATIO 0.8 (1.1-1.5); ALKALINE PHOSPHATASE 77 IU/L (46-116); ANION GAP 11 (8-16); ASPARTATE AMINO TRANSFERASE 15 U/L (10-37); BILIRUBIN,TOTAL 0.6 MG/DL (0.1-1.0); BLOOD UREA NITROGEN 8 MG/DL (7-18); BUN/CREATININE RATIO 12.5 (10.0-20.0); CALCIUM 8.2 MG/DL (8.5-10.1); CHLORIDE 103 MMOL/L (99-107); CREATININE 0.64 MG/DL (0.60-1.10); GLUCOSE 99 MG/DL (70-104); POTASSIUM 3.6 MMOL/L (3.5-5.1); SODIUM 138 MMOL/L (135-145); TOTAL CARBON DIOXIDE 23.8 MMOL/L (24-32); TOTAL PROTEIN 6.1 G/DL (6.4-8.2); eCRCL 83 ML/MIN; eGFR > 90 ML/MIN
[2023-06-13] MEDS: heparin 25,000 UNIT/250ml bag 250 ML IV PRN (19:12)
[2023-06-13] MEDS: carbidopa/levodopa 50/200mg CR tablet PO SCH (21:00)
[2023-06-13 22:00] VITALS: BP 147/68; PULSE 68; RESP 12; TEMP 97.3; O2SAT 93
[2023-06-14] MEDS: acetaminophen 325mg tablet PO SCH
[2023-06-14 02:00] VITALS: BP 128/59; PULSE 56; RESP 15; TEMP 97.7; O2SAT 93
[2023-06-14 08:00] VITALS: RESP 21; O2SAT 96
[2023-06-14 08:54] LABS: BASOPHILS # (AUTO) 0.1 X10'3 (0-0.2); EOSINOPHILS # (AUTO) 0.2 X10'3 (0-0.9); EOSINOPHILS % (AUTO) 2.3 % (0-6); HEMOGLOBIN 13.4 g/dl (14.0-17.9); LYMPHOCYTES # (AUTO) 0.5 X10'3 (1.1-4.8); LYMPHOCYTES % (AUTO) 7.5 % (21-51); MEAN CORPUSCULAR HEMOGLOBIN 29.2 PG (27.0-31.0); MEAN CORPUSCULAR HGB CONC 33.6 g/dL (33.0-36.5); MEAN CORPUSCULAR VOLUME 87.1 FL (78-98); MONOCYTES # (AUTO) 0.7 X10'3 (0-0.9); NEUTROPHILS # (AUTO) 5.7 X10'3 (1.8-7.7); NEUTROPHILS % (AUTO) 79.2 % (42-75); PLATELET COUNT 134 X10'3 (140-440); RED BLOOD COUNT 4.59 X10'6 (4.70-6.10); RED CELL DISTRIBUTION WIDTH 13.9 % (11.5-14.5); WHITE BLOOD COUNT 7.1 X10'3 (4.5-11.0)
[2023-06-14 10:34] LABS: ALANINE AMINOTRANSFERASE 20 U/L (12-78); ALBUMIN 2.5 G/DL (3.4-5.0); ALBUMIN/GLOBULIN RATIO 0.8 (1.1-1.5); ALKALINE PHOSPHATASE 67 IU/L (46-116); ANION GAP 7 (8-16); ASPARTATE AMINO TRANSFERASE 13 U/L (10-37); BILIRUBIN,TOTAL 0.5 MG/DL (0.1-1.0); BLOOD UREA NITROGEN 7 MG/DL (7-18); BUN/CREATININE RATIO 11.3 (10.0-20.0); CALCIUM 8.3 MG/DL (8.5-10.1); CHLORIDE 104 MMOL/L (99-107); CREATININE 0.62 MG/DL (0.60-1.10); GLUCOSE 121 MG/DL (70-104); POTASSIUM 3.3 MMOL/L (3.5-5.1); SODIUM 138 MMOL/L (135-145); TOTAL CARBON DIOXIDE 27.2 MMOL/L (24-32); TOTAL PROTEIN 5.6 G/DL (6.4-8.2); eCRCL 85 ML/MIN; eGFR > 90 ML/MIN
== END 2023-06-14 13:14 | disposition hospice, home (50) | DRG 871 ==
LOC: ER 12:33 → ED HOLD 20:46 → OBSVTOIN 20:46 → ED HOLD 06-07 02:19 → PCU 3S 06-08 01:12
PROVIDERS: ADMIT Internal Medicine; ATTEND Family Medicine
PROC: 05HY33Z Insertion of Infusion Device into Upper Vein, Percutaneous Approach (ICD-10-PCS; 2023-06-06)
PROC: B32T1ZZ Computerized Tomography (CT Scan) of Left Pulmonary Artery using Low Osmolar Contrast (ICD-10-PCS; principal; 2023-06-11)
PROC: B3201ZZ Computerized Tomography (CT Scan) of Thoracic Aorta using Low Osmolar Contrast (ICD-10-PCS; 2023-06-11)
PROC: B32S1ZZ Computerized Tomography (CT Scan) of Right Pulmonary Artery using Low Osmolar Contrast (ICD-10-PCS; 2023-06-11)
DX: A41.1 Sepsis due to other specified staphylococcus (principal); G93.41 Metabolic encephalopathy; I26.99 Other pulmonary embolism without acute cor pulmonale; N17.9 Acute kidney failure, unspecified; K52.9 Noninfective gastroenteritis and colitis, unspecified; E83.51 Hypocalcemia; G20.A1 Parkinson's disease without dyskinesia, without mention of fluctuations; E87.6 Hypokalemia; N18.2 Chronic kidney disease, stage 2 (mild); Z20.822 Contact with and (suspected) exposure to COVID-19; E88.09 Other disorders of plasma-protein metabolism, not elsewhere classified; I12.9 Hypertensive chronic kidney disease with stage 1 through stage 4 chronic kidney disease, or unspecified chronic kidney disease; E83.42 Hypomagnesemia; D69.6 Thrombocytopenia, unspecified; R82.81 Pyuria; R33.9 Retention of urine, unspecified; F02.80 Dementia in other diseases classified elsewhere, unspecified severity, without behavioral disturbance, psychotic disturbance, mood disturbance, and anxiety; Z78.1 Physical restraint status; Z79.899 Other long term (current) drug therapy; Z88.1 Allergy status to other antibiotic agents; L08.9 Local infection of the skin and subcutaneous tissue, unspecified
CPT/HCPCS: 36415; 70450; 70551; 71045; 71275; 80053; 81001; 82140; 82948; 83605; 83735; 84132; 84145; 84443; 84484; 85025; 85610; 85651; 85730; 86140; 87040; 87081; 87088; 87502; 87503; 87811; 92508; 92616; 93005; 94760; 97110; 97161; 97530; 99285; A4349; A4649; A6213; A6250; A6258; C1758; G0378; J0360; J0696; J1644; J1650; J2020; J3480; J3490; J7030; Q9967